=== PATIENT | male | born 1945 | race Two or more races ===

== ENCOUNTER 2018-08-20 19:58 | Emergency (ER) | payer MEDICARE ==
[2018-08-20 20:52] LABS: MONOCYTE ABSOLUTE 0.6 Th/cmm (0.3-1.0); NEUTROPHILE ABSOLUTE 4.8 Th/cmm (1.8-8.0)
[2018-08-20 20:55] LABS: % EOSINOPHILS 0.2 % (0.0-5.0); % LYMPHOCYTES 9.3 % (20.0-50.0); % MONOCYTES 9.8 % (2.0-10.0); % NEUTROPHILS 80.7 % (40.0-80.0); HEMATOCRIT 31.8 % (41.0-60); LYMPHOCYTE ABSOLUTE 0.6 Th/cmm (1.5-3.0); MEAN CORPUSCULAR HEMOGLOBIN 38.5 pg (27.0-31.0); MEAN CORPUSCULAR HGB CONC 34.5 pg (28.0-36.0); PLATELET COUNT 155 Th/cmm (150-400); RED BLOOD COUNT 2.85 Mil/cmm (3.80-5.80)
--- NOTE | 2018-08-20 20:55 | ED Physician Chart ---
ED Chief Complaint/HPI - Patient Information Date Seen:: 08/20/18 Time Seen:: 20:24 Chief Complaint:: trip and fall History of Present Illness:: this is a 73 yo male bib ems from the sidewalk after tripping and falling. he states that he was walking about two hours prior Allergies:: Allergies Allergy/AdvReac Type Severity Reaction Status Date / Time No Known Allergies Allergy Verified 08/20/18 20:04 Vitals:: Vital Signs - 8 hr 08/20/18 20:15 Temp 97.6 F HR 107 RR 18 BP 149/92 O2 Sat % 99 Family Medical History - Family Member Mother History Unknown: Yes ED Labs/Radiology/EKG Results - EKG Interpretations EKG Time:: 20:21 Rate & Rhythm: rate=94, sinus [place]: right ED Assessment - Assessment General Assessment: contusion and abrasion of the nose mild dehydration anemia ED Septic Shock - . Is Septic Shock (SBP<90, OR Lactate>4 mmol\L) present?: No - <6hrs of presentation: Vital Signs: Vital Signs - 8 hr 08/20/18 20:15 Temp 97.6 F HR 107 RR 18 BP 149/92 O2 Sat % 99 ED Reassessment (Disposition) - Reassessment Reassessment Condition:: Improved - Diagnosis Diagnosis:: dehydration contusion and abrasion of the nose anemia - Aftercare/Follow up Instructions Aftercare/Follow-Up Instructions:: Counseled pt regarding lab results/diagnosis & need follow up, Refer to Discharge Instructions, Counseled pt & family regarding lab results/diagnosis & need follow up Medication Prescribed:: motrin - Patient Disposition Discharge/Transfer:: Home Condition at Disposition:: Improved
[2018-08-20 20:57] LABS: MEAN CELL VOLUME 111.5 fl (80-99)
[2018-08-20 21:02] LABS: INR 1.32 (0.5-1.4)
[2018-08-20 21:07] LABS: ALB/GLOB RATIO 1.2 (1.0-1.8); ALBUMIN 3.5 gm/dL (4.2-5.5); ALKALINE PHOSPHATASE 96 U/L (34-104); ANION GAP 23.4 (7.0-16.0); BILIRUBIN,TOTAL 1.8 mg/dL (0.3-1.0); BUN - UREA NITROGEN 27 mg/dL (7-25); CALCIUM SERUM 8.4 mg/dL (8.6-10.3); CARBON DIOXIDE 14.7 mEq/L (21.0-31.0); CHLORIDE 104 mEq/L (98-107); GLUCOSE 128 mg/dL (70-105); POTASSIUM SERUM 3.1 mEq/L (3.5-5.1); SGOT 65 U/L (13-39); SGPT/ALT 36 U/L (7-52); SODIUM SERUM 139 mEq/L (136-145); TOTAL PROTEIN,SERUM 6.5 gm/dL (6.0-8.3)
[2018-08-20 21:15] LABS: CHOLESTEROL 147 mg/dL (<200); HDL -HIGH DENSITY LIPOPROTEIN 87 mg/dL (23-92); TRIGLYCERIDES 162 mg/dL (<150)
--- NOTE | 2018-08-21 10:29 | Diagnostic Imaging Report ---
Portable chest x-ray Time: 2038 History: Tachycardia Allowing for portable technique the heart size is normal. No focal pulmonary parenchymal processes. No hilar or mediastinal abnormalities. Impression: No acute abnormalities.
== END 2018-08-20 21:45 | disposition home or self-care (01) ==
LOC: ER 19:58
DX: S00.33XA Contusion of nose, initial encounter (principal); E86.0 Dehydration; D64.9 Anemia, unspecified; W01.0XXA Fall on same level from slipping, tripping and stumbling without subsequent striking against object, initial encounter; Y93.01 Activity, walking, marching and hiking; Y92.89 Other specified places as the place of occurrence of the external cause; Y99.8 Other external cause status
CPT/HCPCS: 36415-UA; 71045-TC; 80053-TC; 80061-TC; 84443-TC; 84484-TC; 85025-TC; 85610-TC; 85730-TC; 86592-TC; 93005